=== PATIENT | female | born 1945 | race Caucasian/White ===

== ENCOUNTER 2019-01-26 11:15 | Inpatient (IN) | payer MEDICARE, BC ==
[2019-01-20 12:23] LABS: BASOPHILS # (AUTO) 0.1 X10'3 (0-0.2); BASOPHILS % (AUTO) 0.7 % (0-1); EOSINOPHILS # (AUTO) 0.2 X10'3 (0-0.9); EOSINOPHILS % (AUTO) 2.5 % (0-6); LYMPHOCYTES # (AUTO) 1.9 X10'3 (1.1-4.8); LYMPHOCYTES % (AUTO) 23.6 % (21-51); MEAN CORPUSCULAR HEMOGLOBIN 32.3 PG (27.0-31.0); MEAN CORPUSCULAR HGB CONC 33.6 g/dL (33.0-36.5); MEAN CORPUSCULAR VOLUME 96.2 FL (78-98); MEAN PLATELET VOLUME 7.5 FL (7.4-10.4); MONOCYTES # (AUTO) 0.6 X10'3 (0-0.9); MONOCYTES % (AUTO) 7.6 % (2-12); NEUTROPHILS # (AUTO) 5.4 X10'3 (1.8-7.7); NEUTROPHILS % (AUTO) 65.6 % (42-75); PRE OP HEMATOCRIT 49.7 % (35.0-45.0); PRE OP HEMOGLOBIN 16.7 g/dL (12.0-16.0); PRE OP PLATELET COUNT 345 X10'3 (140-440); RED BLOOD COUNT 5.17 X10'6 (4.20-5.60); RED CELL DISTRIBUTION WIDTH 14.7 % (11.5-14.5)
[2019-01-20 12:30] LABS: CLARITY,URINE CLEAR (Clear); COLOR,URINE YELLOW (Yellow); GLUCOSE, URINE NEGATIVE (Neg); KETONES,URINE NEGATIVE (Neg); LEUKOCYTE ESTERASE ,URINE NEGATIVE (Neg); NITRITES, URINE NEGATIVE (Neg); OCCULT BLOOD,URINE NEGATIVE (Neg); PROTEIN,URINE NEGATIVE (Neg); UROBILINOGEN,URINE 0.2 E.U/dL (0.2-1.0)
[2019-01-20 12:35] LABS: UA COLLECTION TYPE CLN CATCH MIDSTREAM
[2019-01-20 12:39] LABS: PRE OP PROTIME 10.3 SECONDS (9.0-12.0)
[2019-01-20 12:44] LABS: ALBUMIN 4.1 G/DL (3.4-5.0); ALBUMIN/GLOBULIN RATIO 1.3 (1.1-1.5); ALKALINE PHOSPHATASE 66 IU/L (46-116); BLOOD UREA NITROGEN 10 MG/DL (7-18); BUN/CREATININE RATIO 14.7 (6.6-38.0); CALCIUM 9.2 MG/DL (8.5-10.1); CHLORIDE 105 MMOL/L (99-107); CREATININE 0.68 MG/DL (0.40-0.90); PRE OP ALT 34 U/L (30-65); PRE OP ANION GAP 9 (8-16); PRE OP AST 23 U/L (10-37); PRE OP BILIRUB, TOTAL 0.4 MG/DL (0.0-1.0); PRE OP GLUCOSE 109 MG/DL (70-104); PRE OP SODIUM 143 MMOL/L (135-145); TOTAL CARBON DIOXIDE 29.4 MMOL/L (24-32); TOTAL PROTEIN 7.3 G/DL (6.4-8.2); eGFR 84 ML/MIN
[~2019-01-26] VITALS: Ht 152.4 cm; Wt 64.0 kg
[2019-01-26] VITALS (7 sets, daily range): BP systolic 107–142; BP diastolic 68–90
[~2019-01-26 11:15] MED LIST: ALBU8.5H8 INH; BUSP5TAB3 PO; CHOL10002 PO; DULO-31 PO; HYDR-4353 PO; PRAV40TA3 PO; TRAZ-219 PO
[2019-01-26] MEDS ORDERED: albuterol 2.5 MG/3 ML nebule NEB ONE (14:00)
[2019-01-26] MEDS ORDERED: ceFOXitin 2 GM ADDvantage bag 100 ML IV ONE (14:00)
[2019-01-26] MEDS ORDERED: famotidine 20mg tablet PO ONE (14:00)
[2019-01-26] MEDS: ringers solution, lacted 1,000 ML IV SCH (14:52)
[2019-01-26] MEDS ORDERED: BUPIVAcaine/PF 2.5 mg/ml (0.25%) 30ml vial ONE (16:06)
[2019-01-26] MEDS ORDERED: ceFAZolin 1000mg inj ONE (16:06)
[2019-01-26] MEDS ORDERED: iohexol 300 MG/1 ML 50ml polymer ONE (16:24)
[2019-01-26] MEDS ORDERED: sevoflurane 250ml liquid IH ONE (16:59)
[2019-01-26] MEDS ORDERED: neostigmine methylsulfate 1 MG/ML 10ml vial ONE (16:59)
[2019-01-26] MEDS ORDERED: rocuronium 10mg/ml inj IV ONE (17:01)
[2019-01-26] MEDS ORDERED: propofol inj 20 ML IV ONE (17:01)
[2019-01-26] MEDS ORDERED: LIDOcaine 2% (20mg/ml) 5ml vial ONE (17:01)
[2019-01-26] MEDS ORDERED: midazolam 2 mg/2 ml injection ONE (17:05)
[2019-01-26] MEDS ORDERED: morphine 10mg/ml inj. ONE (17:06)
[2019-01-26] MEDS ORDERED: BUPIVACAINE liposomal/PF 13.3 MG/ML vial IM ONE (18:17)
[2019-01-26] MEDS ORDERED: BUPIVAcaine/PF 2.5mg/ml (0.25%) 10ml vial ONE (18:17)
[2019-01-26] MEDS ORDERED: ringers solution, lacted 1,000 ML IV SCH (18:34)
[2019-01-26] MEDS ORDERED: morphine 4 MG/ML inj SYRINge IV PRN (18:35)
[2019-01-26] MEDS ORDERED: ondansetron/PF 4mg/2ml inj IV PRN ×2 (18:35→19:25)
[2019-01-26] MEDS ORDERED: HYDROmorphone inj. 0.5 MG/0.5 ML DISP.SYRIN IV PRN (18:35)
[2019-01-26] MEDS ORDERED: esmolol inj. 10 ML IV ONE (19:03)
[2019-01-26] MEDS ORDERED: glycopyrrolate 0.2mg/ml inj ONE (19:03)
[2019-01-26] MEDS ORDERED: ondansetron/PF 4mg/2ml inj ONE (19:03)
[2019-01-26] MEDS ORDERED: dexamethasone sod phosphate 4mg/ml inj. ONE (19:03)
--- NOTE | 2019-01-26 19:45 | NUR ---
Received from OR via BED , accompanied by Anesthesiologist DR MAYER and report given by Anesthesiolgist, PATIENT WAKING UP, DENIES PAIN, V/S WNL, CSM INTACT, ABDOMEN DRESSING CDI WITH , 20G PIV TO LUE, SCD ON, F/C DRAINING CLEAR PINKISH URINE.
[2019-01-26] MEDS ORDERED: labetalol 20mg/4ml (5mg/ml) syringe IV ONE (19:59)
[2019-01-26] MEDS ORDERED: ipratropium/albuterol 3ml nebule NEB PRN (20:00)
--- NOTE | 2019-01-26 20:15 | NUR ---
Received report from JULIANNE Burkett. Awaiting patient arrival to the floor.
--- NOTE | 2019-01-26 20:20 | NUR ---
Patient arrived to the floor in a hospital bed. Placed in 355B. Patient is awake and alert on 2L NC, in no apparent distress. Call light and items of frequent use within reach. Started Post-op vitals. Will continue to monitor.
--- NOTE | 2019-01-26 20:25 | NUR ---
PATIENT AWAKE AND ORIENTED, DENIES PAIN, V/S WNL, CSM INTACT, ABDOMEN DRESSING CDI WITH , 20G PIV TO LUE, SCD ON, F/C DRAINING CLEAR PINKISH URINE. PATIENT TAKEN TO 355B WITH ALL BELONGINGS AND HOOKED UP TO MONITORS IN ROOM AND REPORT GIVEN TO DRY CHAIN PULLER WHO HAS TAKEN OVER PATIENT CARE.
[2019-01-26] MEDS ORDERED: busPIRone 5mg tablet PO PRN (21:00)
[2019-01-26] MEDS ORDERED: HYDROcodone/acetaminophen 10/325mg tab PO PRN (21:00)
[2019-01-26] MEDS: morphine 2 MG/ML inj. syringe IV PRN (21:55)
[2019-01-26] MEDS: duloxetine 30mg CAPSULE.DR PO SCH (21:55)
[2019-01-26] MEDS: traZODone 50mg tablet PO SCH (21:56)
[2019-01-26] MEDS: pravastatin 40mg tablet PO SCH (22:02)
--- NOTE | 2019-01-26 22:30 | NUR ---
Patient's BP on the monitor showed systolic in high 60's. Checked manually, BP is 108/62 on Left arm.
--- NOTE | 2019-01-26 23:15 | NUR ---
Patient's BP on the monitor showed systolic in 50's. Checked manually, BP is 100/70 on Left arm.
[2019-01-26] MEDS: ceFOXitin 1 GM/D5W 50mL IVPB 1 GM in normal saline 100ml IV soln 100 ML IV SCH (23:43)
[2019-01-27] VITALS: BP 120/61
[2019-01-27] MEDS ORDERED: albuterol 2.5 MG/3 ML nebule NEB PRN
--- NOTE | 2019-01-27 00:05 | NUR ---
Patient's BP on the monitor showed systolic in 70's. Checked manually, BP is 102/70 on Right arm.
[2019-01-27] MEDS: ringers solution, lacted 1,000 ML IV SCH ×2 (02:08→16:16)
[2019-01-27] MEDS: morphine 2 MG/ML inj. syringe IV PRN ×2 (02:12→13:34)
[2019-01-27 04:47] VITALS: BP 106/62
--- NOTE | 2019-01-27 06:18 | NUR ---
Problems reprioritized. Patient report given, questions answered & plan of care reviewed with JULIANNE Hernández.
--- NOTE | 2019-01-27 06:57 | NUR ---
Patient in room [facility]. I have received report from manuel latif and had the opportunity to ask questions and assume patient care.
[2019-01-27 07:00] VITALS: BP 100/56
[2019-01-27] MEDS: ceFOXitin 1 GM/D5W 50mL IVPB 1 GM in normal saline 100ml IV soln 100 ML IV SCH (07:19)
[2019-01-27] MEDS: vitamin D (cholecalciferol) 1,000 unit tablet PO SCH (07:23)
[2019-01-27 13:00] VITALS: BP 100/58
[2019-01-27] MEDS ORDERED: HYDROcodone/acetaminophen 10/325mg tab PO PRN (16:10)
[2019-01-27] MEDS: HYDROcodone/acetaminophen 10/325mg tab PO PRN ×2 (16:41→23:09)
[2019-01-27 18:00] VITALS: BP 103/53
--- NOTE | 2019-01-27 18:24 | NUR ---
Problems reprioritized. Patient report given, questions answered & plan of care reviewed with SANDHYA WHITAKER.
--- NOTE | 2019-01-27 18:25 | NUR ---
Patient in room [facility]. I have received report from JULIANNE Hernández and had the opportunity to ask questions and assume patient care.
[2019-01-27] MEDS: pravastatin 40mg tablet PO SCH (20:39)
[2019-01-27] MEDS: traZODone 50mg tablet PO SCH (20:40)
[2019-01-27] MEDS: duloxetine 30mg CAPSULE.DR PO SCH (20:40)
[2019-01-28 00:22] VITALS: BP 101/51
[2019-01-28] MEDS: morphine 2 MG/ML inj. syringe IV PRN ×2 (05:05→14:28)
--- NOTE | 2019-01-28 06:25 | NUR ---
Problems reprioritized. Patient report given, questions answered & plan of care reviewed with JULIANNE Hernández.
[2019-01-28 07:10] VITALS: BP 108/60
[2019-01-28] MEDS: vitamin D (cholecalciferol) 1,000 unit tablet PO SCH (07:15)
[2019-01-28] MEDS: HYDROcodone/acetaminophen 10/325mg tab PO PRN ×2 (08:17→17:56)
[2019-01-28 11:00] LABS: BASOPHILS % (AUTO) 0.5 % (0-1); EOSINOPHILS # (AUTO) 0.1 X10'3 (0-0.9); EOSINOPHILS % (AUTO) 0.6 % (0-6); HEMATOCRIT 24.8 % (35.0-45.0); HEMOGLOBIN 8.6 g/dl (12.0-16.0); LYMPHOCYTES # (AUTO) 2.1 X10'3 (1.1-4.8); LYMPHOCYTES % (AUTO) 21.8 % (21-51); MEAN CORPUSCULAR HEMOGLOBIN 33.2 PG (27.0-31.0); MEAN CORPUSCULAR HGB CONC 34.5 g/dL (33.0-36.5); MEAN CORPUSCULAR VOLUME 96.3 FL (78-98); MEAN PLATELET VOLUME 7.6 FL (7.4-10.4); MONOCYTES % (AUTO) 10.7 % (2-12); NEUTROPHILS # (AUTO) 6.4 X10'3 (1.8-7.7); NEUTROPHILS % (AUTO) 66.4 % (42-75); PLATELET COUNT 235 X10'3 (140-440); RED BLOOD COUNT 2.58 X10'6 (4.20-5.60); RED CELL DISTRIBUTION WIDTH 13.9 % (11.5-14.5); WHITE BLOOD COUNT 9.6 X10'3 (4.5-11.0)
[2019-01-28 11:09] LABS: ALBUMIN 2.8 G/DL (3.4-5.0); ANION GAP 8 (8-16); BLOOD UREA NITROGEN 6 MG/DL (7-18); BUN/CREATININE RATIO 8.1 (6.6-38.0); CALCIUM 7.8 MG/DL (8.5-10.1); CHLORIDE 107 MMOL/L (99-107); CREATININE 0.74 MG/DL (0.40-0.90); GLUCOSE 103 MG/DL (70-104); SODIUM 141 MMOL/L (135-145); TOTAL CARBON DIOXIDE 26.5 MMOL/L (24-32); eGFR 77 ML/MIN
[2019-01-28 11:34] VITALS: BP 96/53
[2019-01-28 18:00] VITALS: BP 120/66
--- NOTE | 2019-01-28 18:36 | NUR ---
Problems reprioritized. Patient report given, questions answered & plan of care reviewed with joel latif.
--- NOTE | 2019-01-28 18:37 | NUR ---
Patient in room [facility]. I have received report from JULIANNE Hernández and had the opportunity to ask questions and assume patient care.
[2019-01-28] MEDS: duloxetine 30mg CAPSULE.DR PO SCH (20:42)
[2019-01-28] MEDS: pravastatin 40mg tablet PO SCH (20:42)
[2019-01-28] MEDS: traZODone 50mg tablet PO SCH (20:43)
[2019-01-29] VITALS: BP 106/66
[2019-01-29] MEDS: morphine 2 MG/ML inj. syringe IV PRN (00:19)
[2019-01-29] MEDS: HYDROcodone/acetaminophen 10/325mg tab PO PRN ×2 (04:16→10:24)
[2019-01-29 06:27] LABS: ALBUMIN 2.6 G/DL (3.4-5.0); ANION GAP 7 (8-16); BLOOD UREA NITROGEN 6 MG/DL (7-18); BUN/CREATININE RATIO 9.5 (6.6-38.0); CALCIUM 7.9 MG/DL (8.5-10.1); CHLORIDE 107 MMOL/L (99-107); CREATININE 0.63 MG/DL (0.40-0.90); GLUCOSE 104 MG/DL (70-104); POTASSIUM 3.8 MMOL/L (3.5-5.1); SODIUM 142 MMOL/L (135-145); TOTAL CARBON DIOXIDE 28.2 MMOL/L (24-32); eGFR > 90 ML/MIN
--- NOTE | 2019-01-29 06:30 | NUR ---
Patient in room [facility]. I have received report from Stefan WHITAKER and had the opportunity to ask questions and assume patient care.
[2019-01-29 06:33] LABS: BASOPHILS % (AUTO) 0.5 % (0-1); EOSINOPHILS # (AUTO) 0.1 X10'3 (0-0.9); EOSINOPHILS % (AUTO) 1.9 % (0-6); HEMATOCRIT 22.8 % (35.0-45.0); HEMOGLOBIN 7.9 g/dl (12.0-16.0); LYMPHOCYTES # (AUTO) 1.7 X10'3 (1.1-4.8); LYMPHOCYTES % (AUTO) 23.1 % (21-51); MEAN CORPUSCULAR HEMOGLOBIN 33.5 PG (27.0-31.0); MEAN CORPUSCULAR HGB CONC 34.7 g/dL (33.0-36.5); MEAN CORPUSCULAR VOLUME 96.6 FL (78-98); MEAN PLATELET VOLUME 7.8 FL (7.4-10.4); MONOCYTES # (AUTO) 0.8 X10'3 (0-0.9); MONOCYTES % (AUTO) 10.6 % (2-12); NEUTROPHILS # (AUTO) 4.6 X10'3 (1.8-7.7); NEUTROPHILS % (AUTO) 63.9 % (42-75); PLATELET COUNT 212 X10'3 (140-440); RED BLOOD COUNT 2.36 X10'6 (4.20-5.60); RED CELL DISTRIBUTION WIDTH 13.9 % (11.5-14.5); WHITE BLOOD COUNT 7.2 X10'3 (4.5-11.0)
--- NOTE | 2019-01-29 06:42 | NUR ---
Problems reprioritized. Patient report given, questions answered & plan of care reviewed with JULIANNE Cordero.
[2019-01-29 07:37] VITALS: BP 110/60
[2019-01-29] MEDS: vitamin D (cholecalciferol) 1,000 unit tablet PO SCH (07:50)
[2019-01-29 11:00] VITALS: BP 113/63
[2019-01-29] MEDS ORDERED: HYDR-4353 PO (12:53)
--- NOTE | 2019-01-29 14:00 | NUR ---
Patient discharged at this time. Patient discharge was done in room with family at bedside. Patient expressed verbal understanding of new medications and how to use them. Patient was notified to make follow up with surgeon. Patient was sent with hard copy Rx and copy was retained for chart. Patient removed IV but minimal bleeding and from site was seen and canula was whole and intact upon inspection. Patient was taken to lobby via wheel chair.
== END 2019-01-29 13:40 | disposition home or self-care (01) | DRG 660 ==
LOC: EDSTATUS 11:15 → PAS IN 12:49 → EDSTATUS 16:00 → SUR 3N 20:50
PROVIDERS: ADMIT Surgery; ATTEND Surgery
PROC: 0DBN4ZZ Excision of Sigmoid Colon, Percutaneous Endoscopic Approach (ICD-10-PCS; 2019-01-26)
PROC: BT141ZZ Fluoroscopy of Kidneys, Ureters and Bladder using Low Osmolar Contrast (ICD-10-PCS; 2019-01-26)
PROC: 3E0T3BZ Introduction of Anesthetic Agent into Peripheral Nerves and Plexi, Percutaneous Approach (ICD-10-PCS; 2019-01-26)
PROC: 0T788DZ Dilation of Bilateral Ureters with Intraluminal Device, Via Natural or Artificial Opening Endoscopic (ICD-10-PCS; principal; 2019-01-26 16:59)
PROC: 0UQG4ZZ Repair Vagina, Percutaneous Endoscopic Approach (ICD-10-PCS; 2019-01-26 16:59)
DX: N32.1 Vesicointestinal fistula (principal); D62 Acute posthemorrhagic anemia; K57.32 Diverticulitis of large intestine without perforation or abscess without bleeding; J44.9 Chronic obstructive pulmonary disease, unspecified; D49.0 Neoplasm of unspecified behavior of digestive system; F17.210 Nicotine dependence, cigarettes, uncomplicated; M19.90 Unspecified osteoarthritis, unspecified site; Z79.899 Other long term (current) drug therapy; Z82.3 Family history of stroke; Z90.710 Acquired absence of both cervix and uterus; Z80.9 Family history of malignant neoplasm, unspecified
CPT/HCPCS: 36415; 71046; 76000; 80048; 80053; 81003; 82948; 85025; 85610; 85730; 86885; 86900; 86901; 86920; 87081; 88307; 94640; 94760; A4215; A4355; A4618; A7000; C1758; C1769; C9290; G0378; J0690; J0694; J1100; J2001; J2250; J2270; J2405; J2704; J2710; J3490; J7120; Q9967

== ENCOUNTER 2022-04-09 13:29 | Outpatient (CLI) | payer MEDICARE, BC ==
[~2022-04-09 13:29] MED LIST changes: +ALBU8.5H17 INH; -ALBU8.5H8 INH; -TRAZ-219 PO; +TRAZ-256 PO
== END 2022-04-09 23:59 | disposition home or self-care (01) ==
LOC: RAD 13:29
PROVIDERS: ATTEND Internal Medicine
DX: K21.9 Gastro-esophageal reflux disease without esophagitis (principal); R13.14 Dysphagia, pharyngoesophageal phase; R49.0 Dysphonia
CPT/HCPCS: 74230

== ENCOUNTER 2022-07-09 08:48 | Day surgery (SDC) | payer MEDICARE, BC ==
[2022-06-19 11:25] LABS: BASOPHILS # (AUTO) 0.1 X10'3 (0-0.2); BASOPHILS % (AUTO) 0.7 % (0-1); EOSINOPHILS # (AUTO) 0.3 X10'3 (0-0.9); EOSINOPHILS % (AUTO) 3.7 % (0-6); HEMATOCRIT 45.3 % (35.0-45.0); HEMOGLOBIN 14.8 g/dl (12.0-16.0); LYMPHOCYTES # (AUTO) 1.5 X10'3 (1.1-4.8); LYMPHOCYTES % (AUTO) 18.4 % (21-51); MEAN CORPUSCULAR HEMOGLOBIN 31.5 PG (27.0-31.0); MEAN CORPUSCULAR HGB CONC 32.7 g/dL (33.0-36.5); MEAN CORPUSCULAR VOLUME 96.4 FL (78-98); MEAN PLATELET VOLUME 7.4 FL (7.4-10.4); MONOCYTES # (AUTO) 0.5 X10'3 (0-0.9); MONOCYTES % (AUTO) 6.2 % (2-12); NEUTROPHILS # (AUTO) 5.7 X10'3 (1.8-7.7); PLATELET COUNT 292 X10'3 (140-440); RED CELL DISTRIBUTION WIDTH 14.4 % (11.5-14.5)
[2022-06-19 11:35] LABS: ALANINE AMINOTRANSFERASE 26 U/L (12-78); ALBUMIN 3.9 G/DL (3.4-5.0); ALBUMIN/GLOBULIN RATIO 1.4 (1.1-1.5); ALKALINE PHOSPHATASE 69 IU/L (46-116); ANION GAP 9 (8-16); ASPARTATE AMINO TRANSFERASE 23 U/L (10-37); BILIRUBIN,TOTAL 0.3 MG/DL (0.1-1.0); BLOOD UREA NITROGEN 11 MG/DL (7-18); BUN/CREATININE RATIO 15.3 (6.6-38.0); CALCIUM 8.9 MG/DL (8.5-10.1); CHLORIDE 104 MMOL/L (99-107); CREATININE 0.72 MG/DL (0.40-0.90); GLUCOSE 125 MG/DL (70-104); POTASSIUM 4.7 MMOL/L (3.5-5.1); SODIUM 136 MMOL/L (135-145); TOTAL CARBON DIOXIDE 23.1 MMOL/L (24-32); TOTAL PROTEIN 6.7 G/DL (6.4-8.2); eGFR 78 ML/MIN
[2022-06-19 11:37] LABS: APTT 23 SECONDS (22-32)
[~2022-07-09] VITALS: Ht 152.4 cm; Wt 64.8 kg
[2022-07-09] VITALS (11 sets, daily range): BP systolic 143–163; BP diastolic 62–91
[2022-07-09] MEDS ORDERED: diphenhydrAMINE 25mg capsule PO PRN (09:05)
[2022-07-09] MEDS ORDERED: LORazepam 0.5 MG tablet PO PRN (09:05)
[2022-07-09] MEDS ORDERED: nitroGLYCERIN 0.4mg SUBLingual tab SL PRN (09:05)
[2022-07-09] MEDS ORDERED: normal saline 1,000 ML IV SCH (09:05)
[2022-07-09] MEDS ORDERED: ALPR-163 PO (09:31)
[2022-07-09] MEDS ORDERED: DICL50TA14 PO (09:31)
[2022-07-09] MEDS ORDERED: OMEP40CA21 PO (09:31)
[2022-07-09 09:56] LABS: APTT 25 SECONDS (22-32)
[2022-07-09 09:58] LABS: BASOPHILS % (AUTO) 0.7 % (0-1); EOSINOPHILS # (AUTO) 0.3 X10'3 (0-0.9); EOSINOPHILS % (AUTO) 3.8 % (0-6); HEMOGLOBIN 14.7 g/dl (12.0-16.0); LYMPHOCYTES # (AUTO) 1.5 X10'3 (1.1-4.8); LYMPHOCYTES % (AUTO) 21.3 % (21-51); MEAN CORPUSCULAR HEMOGLOBIN 32.5 PG (27.0-31.0); MEAN CORPUSCULAR HGB CONC 33.3 g/dL (33.0-36.5); MEAN CORPUSCULAR VOLUME 97.4 FL (78-98); MEAN PLATELET VOLUME 7.5 FL (7.4-10.4); MONOCYTES # (AUTO) 0.6 X10'3 (0-0.9); MONOCYTES % (AUTO) 8.8 % (2-12); NEUTROPHILS # (AUTO) 4.5 X10'3 (1.8-7.7); NEUTROPHILS % (AUTO) 65.4 % (42-75); PLATELET COUNT 298 X10'3 (140-440); RED BLOOD COUNT 4.52 X10'6 (4.20-5.60); RED CELL DISTRIBUTION WIDTH 14.4 % (11.5-14.5); WHITE BLOOD COUNT 6.9 X10'3 (4.5-11.0)
[2022-07-09 09:59] LABS: ALBUMIN 3.8 G/DL (3.4-5.0); ANION GAP 9 (8-16); BLOOD UREA NITROGEN 15 MG/DL (7-18); BUN/CREATININE RATIO 17.9 (6.6-38.0); CALCIUM 8.7 MG/DL (8.5-10.1); CHLORIDE 106 MMOL/L (99-107); CREATININE 0.84 MG/DL (0.40-0.90); GLUCOSE 117 MG/DL (70-104); POTASSIUM 4.2 MMOL/L (3.5-5.1); SODIUM 140 MMOL/L (135-145); TOTAL CARBON DIOXIDE 25.3 MMOL/L (24-32); eGFR 65 ML/MIN
[2022-07-09] MEDS ORDERED: midazolam 1 mg/ML 2ml injection ONE ×2 (12:56→13:53)
[2022-07-09] MEDS ORDERED: HYDROmorphone 1 mg/ml syringe ONE (12:56)
[2022-07-09] MEDS ORDERED: iohexol 350 MG/ML 50ML vial IV ONE (12:56)
[2022-07-09] MEDS ORDERED: iohexol 350MG/ML 100ml bottle IV ONE (12:56)
[2022-07-09] MEDS ORDERED: LIDOcaine 1% 30ml preserv. free vial ONE (12:56)
[2022-07-09] MEDS ORDERED: OXAZEpam 15mg capsule PO PRN (14:45)
[2022-07-09] MEDS ORDERED: HYDROcodone/acetaminophen 5mg/325mg tablet PO PRN (14:45)
[2022-07-09] MEDS ORDERED: ondansetron/PF 4mg/2ml inj IV PRN (14:45)
[2022-07-09] MEDS ORDERED: proCHLORperazine 10 MG/2 ml inj IV PRN (14:45)
[2022-07-09] MEDS ORDERED: HYDROcodone/acetaminophen 10/325mg tab PO PRN (14:45)
== END 2022-07-09 19:00 | disposition home or self-care (01) ==
LOC: SSTAY O 08:48
PROVIDERS: ATTEND Internal Medicine Cardiovascular Disease
DX: R94.39 Abnormal result of other cardiovascular function study (principal); I25.10 Atherosclerotic heart disease of native coronary artery without angina pectoris; I42.9 Cardiomyopathy, unspecified; I34.81 Nonrheumatic mitral (valve) annulus calcification; F32.A Depression, unspecified; K21.9 Gastro-esophageal reflux disease without esophagitis; F17.210 Nicotine dependence, cigarettes, uncomplicated; M47.9 Spondylosis, unspecified; G89.29 Other chronic pain; E78.5 Hyperlipidemia, unspecified; Z90.710 Acquired absence of both cervix and uterus; Z98.890 Other specified postprocedural states; Z88.4 Allergy status to anesthetic agent; F11.20 Opioid dependence, uncomplicated; Z79.899 Other long term (current) drug therapy; Z79.01 Long term (current) use of anticoagulants
CPT/HCPCS: 36415; 71046; 80048; 80053; 85025; 85610; 85730; 93005; 93458; 99152; C1760; C1769; J1644; J2250; J3490; J7030; Q0163; Q9967; J1170